=== PATIENT | male | born 1955 | race Hispanic/Latino ===

== ENCOUNTER 2018-05-21 09:17 | Observation (INO) | payer OTHER ==
[2018-05-20 15:06] LABS: ANION GAP 16.2 mmol/L (8-16); BLOOD UREA NITROGEN 14 mg/dL (7-26); BUN/CREATININE RATIO 14 (6-25); CALCIUM 10.3 mg/dL (8.4-10.2); CARBON DIOXIDE 26 mmol/L (22-29); CHLORIDE 107 mmol/L (98-107); CREATININE, SERUM 1.03 mg/dL (0.72-1.25); EST GLOMERULAR FILTRATION RATE > 60 ML/MIN (60-); GLUCOSE 76 mg/dL (74-118); SODIUM 144 mmol/L (136-145)
[2018-05-20 15:08] LABS: POTASSIUM 5.2 mmol/L (3.5-5.1)
[~2018-05-21] VITALS: Ht 177.8 cm; Wt 113.9 kg
[~2018-05-21 09:17] MED LIST: ATORVASTATIN CA20 MG PO; CLONAZEPAM0.5 MG PO; LEVOTHYROXINE50 MCG PO; LOSARTAN POTASS25 MG; METFORMIN HCL850 MG PO; METOCLOPRAMIDE10 MG PO; METOPROLOL SUCC50 MG PO; NOVOLOG MI100 UNIT/1 SC; PIOGLITAZONE HC45 MG PO; TAMSULOSIN HCL0.4 MG; ULTRAM50 MG PO; VITAMIN D1000 UNI1 PO
[2018-05-21] MEDS ORDERED: DEXAMETHASONE SOD PHOS 10 MG/1 ML VIAL ONE (09:40)
[2018-05-21] MEDS ORDERED: GABAPENTIN 300 MG CAP ONE (09:40)
[2018-05-21] MEDS ORDERED: CELECOXIB 200 MG CAP ONE (09:40)
[2018-05-21] MEDS ORDERED: CEFAZOLIN SOD 2 GM/D5W 50ML 50 ML IV ONE (09:41)
[2018-05-21] MEDS ORDERED: MUPIROCIN 2% OINT 22 GM TUBE ONE (09:59)
[2018-05-21] MEDS ORDERED: TRANEXAMIC ACID 1,000 MG/10 ML ML ONE (10:00)
[2018-05-21] MEDS ORDERED: BACITRACIN 50,000 UNIT VIAL ONE (10:00)
[2018-05-21] MEDS ORDERED: ROPIVACAINE 246.25 MG, EPINEPHRINE HCL 1:1000 0.5 MG, CLONIDINE HCL 0.08 MG, KETOROLAC ... INJ ONE ×5 (11:45)
[2018-05-21] MEDS ORDERED: SODIUM CHLORIDE 0.9% 1000ML 1,000 ML IV SCH (12:17)
[2018-05-21] MEDS ORDERED: DOCUSATE SODIUM 100 MG CAP PO PRN (12:30)
[2018-05-21] MEDS ORDERED: ACETAMINOPHEN 650 MG SUPP PR PRN (12:30)
[2018-05-21] MEDS ORDERED: DIPHENHYDRAMINE HCL INJ 50 MG/ML VIAL IM/IV PRN (12:30)
[2018-05-21] MEDS ORDERED: KETOROLAC TROMETHAMINE 30 MG/ML VIAL IV PRN (12:30)
[2018-05-21] MEDS ORDERED: HYDROCODONE/APAP 7.5MG-325MG 1 EA TAB PO PRN ×2 (12:30→19:00)
[2018-05-21] MEDS ORDERED: ZOLPIDEM TARTRATE 5 MG TAB PO PRN (12:30)
[2018-05-21] MEDS ORDERED: HYDROCODONE/APAP 5MG-325MG TAB PO PRN (12:30)
[2018-05-21] MEDS ORDERED: PROMETHAZINE HCL (IM) 25 MG/ML VIAL INJ PRN (12:30)
--- NOTE | 2018-05-21 12:52 | Operative Report ---
DATE OF PROCEDURE: May 21, 2018 DESK REPRESENTATIVE: Tyrone Perez PA-C The patient was brought to the operating room for induction of anesthesia. Throughout this case, my PA's assistance was necessary for retraction of soft tissue and positioning of the extremity. This allows for efficient and technically successful execution of the operation and is considered medically necessary. PREOPERATIVE DIAGNOSIS: Osteoarthritis, left knee. POSTOPERATIVE DIAGNOSIS: Osteoarthritis, left knee. PROCEDURE: Left total knee arthroplasty. INDICATIONS: The patient is a 62-year-old gentleman with end-stage arthritis of his left knee. He has failed conservative management and would like to proceed with a left total knee replacement. The risks and benefits have been discussed. He states he understands and wishes to proceed. DESCRIPTION OF PROCEDURE: The patient was brought to the operating room and placed under general anesthetic. He received prophylactic antibiotics, a regional block and tranexamic acid in the holding area. His left lower extremity was prepped and draped in a sterile manner. A preoperative time out was performed. The extremity was exsanguinated, and a proximal tourniquet was inflated to 300 mmHg. An anterior incision with a medial parapatellar arthrotomy was performed. Soft-tissue releases were performed to bring the knee up into flexion with the patella everted. A more aggressive medial release than usual was necessary due to the varus deformity. The cruciate ligaments, meniscal remnants and osteophytes were removed. A Sprague [employer] Nephew Mariah II posterior stabilized knee system was used throughout the case. An extramedullary cutting guide was used to resect the proximal tibia. The tibial baseplate was noted to be a size number 7. A +2-mm cut was made due to the limited range of motion. The central fin punch was impacted, and attention was directed towards the distal femur. An intramedullary cutting guide was used to resect the distal femur in 6 degrees of valgus and rotation referencing off of a combination of landmarks including [place] line, the epicondylar axis and the posterior condyles. The femoral component was also noted to be a size number 7. Anterior and posterior cuts were made. The posterior capsule and posterior joint were inspected. Loose bodies were removed. Posterior osteophytes were removed. A trial reduction was performed. A 9-mm ultracongruent tibial insert was felt to provide optimal soft-tissue balancing in full extension and 90 degrees of flexion. The patella was resurfaced with a 35 mm x 9 mm patellar button. The thickness was checked before and after resurfacing and was right at 26 mm each time. Patellar tracking was concentric. The trial implants were then removed. A 100-mL premixed pericapsular DEBRA injection was placed into the surrounding soft tissue. The knee was thoroughly irrigated with a shower-tip pulsatile lavage. The components were cemented into place using a single mix of Palacos cement preloaded with antibiotics. Care was taken to remove extravasated cement. The wound was further irrigated while the cement cured. The arthrotomy was closed with interrupted #1 Ethibond. The knee was put through flexion and extension to ensure a secure closure. The skin was closed with subcuticular Vicryl and daisy. A sterile bandage was applied. The patient was extubated and transported to the recovery room in stable condition. Blood loss was minimal. All needle and sponge counts were correct. Job#: [id number]
[2018-05-21] MEDS ORDERED: HYDROMORPHONE 1MG/1ML INJ ONE (13:03)
[2018-05-21] MEDS: CEFAZOLIN SOD 1 GM/D5W 50ML 50 ML IV SCH ×2 (14:01→21:08)
[2018-05-21] MEDS: ONDANSETRON HCL INJ 2 MG/ML VIAL IV PRN ×2 (14:01→21:08)
--- NOTE | 2018-05-21 14:54 | Diagnostic Imaging Report ---
PROCEDURE: X-RAY LEFT KNEE, ONE OR TWO VIEWS COMPARISON: None. INDICATIONS:STATUS POST LEFT KNEE SURGERY FINDINGS: See conclusion. CONCLUSION: Status post total left knee replacement with surrounding soft tissue swelling, air and daisy consistent with recent surgery. No acute fractures.satisfactory alignment. Bud Christine M.D. Dictated by: Bud Christine M.D. on 05/21/2018 at 14:11 Electronically approved by: Bud Christine M.D. on 05/21/2018 at 14:11
[2018-05-21 15:30] VITALS: BP 138/76
[2018-05-21 15:45] VITALS: BP 134/75
[2018-05-21] MEDS ORDERED: CELECOXIB 100 MG CAP PO SCH (17:00)
[2018-05-21] MEDS ORDERED: NOVOLOG MI100 UNIT/1 SC (17:12)
[2018-05-21] MEDS: ASPIRIN 325 MG TAB PO SCH (17:53)
[2018-05-21] MEDS: CELECOXIB 200 MG CAP PO SCH (17:53)
[2018-05-21] MEDS ORDERED: ACETAMINOPHEN 1000 MG/100 ML IV ONE (17:58)
[2018-05-21] MEDS ORDERED: ONDANSETRON HCL INJ 2 MG/ML VIAL ONE (17:58)
[2018-05-21] MEDS ORDERED: LIDOCAINE HCL 2% LOCAL INJ 5 ML SDV VIAL INJ ONE (17:58)
[2018-05-21] MEDS ORDERED: SEVOFLURANE INHAL SOLN 250 ML PEN BTL ONE (17:58)
[2018-05-21] MEDS ORDERED: PROPOFOL IV EMULSION 10 MG/ML 20 ML VIAL ONE (17:58)
[2018-05-21] MEDS ORDERED: ACETAMINOPHEN 1000 MG/100 ML IV SCH (18:00)
[2018-05-21] MEDS ORDERED: LIDOCAINE 2%/ EPINEPHRINE 20ML MDV ONE (18:01)
[2018-05-21] MEDS ORDERED: ROPIVACAINE 0.5% 5 MG/ML 30 ML SDV ONE (18:01)
[2018-05-21] MEDS ORDERED: FENTANYL CITRATE/PF 100MCG/2 ML INJ ONE (18:04)
[2018-05-21] MEDS ORDERED: MORPHINE SULFATE INJ 10 MG/ML ONE (18:04)
[2018-05-21] MEDS ORDERED: MIDAZOLAM HCL 2 MG/2 ML VIAL ONE (18:04)
[2018-05-21] MEDS ORDERED: ACETAMINOPHEN 325 MG TAB PO PRN (19:00)
[2018-05-21] MEDS ORDERED: CLONAZEPAM 0.5 MG TAB PO PRN (19:00)
[2018-05-21] MEDS ORDERED: DEXTROSE 50% SYRINGE 50 ML IV PRN (19:00)
[2018-05-21 20:00] VITALS: BP 136/77
[2018-05-21] MEDS ORDERED: ATORVASTATIN 40 MG TAB PO SCH (21:00)
[2018-05-21] MEDS ORDERED: ATORVASTATIN 20 MG TAB PO SCH (21:00)
[2018-05-21] MEDS ORDERED: NON-FORMULARY MEDICATION (Insuln Asp Prt/Insulin Aspart (Novolog Mix 70-30 Flexpen Syrn) 3 SC SCH (21:00)
[2018-05-21] MEDS ORDERED: INSULIN ASPART 70/30 100 UNITS/ML VIAL SC SCH (21:00)
[2018-05-21] MEDS: TAMSULOSIN HCL 0.4 MG CAP PO SCH (21:07)
[2018-05-21] MEDS: KETOROLAC TROMETHAMINE 30 MG/ML VIAL IV PRN (21:35)
[2018-05-22] VITALS: BP 103/55
[2018-05-22] MEDS: INSULIN LISPRO 100 UNIT/1 ML 3ML VIAL SQ SCH ×3 (03:18→12:16)
[2018-05-22 04:00] VITALS: BP 121/65
[2018-05-22 05:51] LABS: BASOPHILS % 0.1 % (0.0-1.0); HEMATOCRIT 41.7 % (38.2-49.6); HEMOGLOBIN 13.9 g/dL (14.0-18.0); LYMPHOCYTES # (AUTO) 1.2 (1.0-3.2); LYMPHOCYTES % 10.4 % (18.0-39.1); MEAN CORPUSCULAR HEMOGLOBIN 32.3 pg (28-32); MEAN CORPUSCULAR HGB CONC 33.3 g/dL (31-35); MONOCYTES # (AUTO) 0.8 (0.2-0.8); MONOCYTES % 7.1 % (4.4-11.3); NEUTROPHILS # (AUTO) 9.5 (2.1-6.9); NEUTROPHILS % 81.9 % (38.7-80.0); PLATELET COUNT 259 x10e3/uL (140-360); RED CELL DISTRIBUTION WIDTH 13.6 % (11.7-14.4)
[2018-05-22] MEDS ORDERED: LEVOTHYROXINE SODIUM 25 MCG TABLET PO SCH (06:00)
[2018-05-22 06:13] LABS: ANION GAP 12.2 mmol/L (8-16); BLOOD UREA NITROGEN 21 mg/dL (7-26); BUN/CREATININE RATIO 24 (6-25); CALCIUM 8.9 mg/dL (8.4-10.2); CARBON DIOXIDE 23 mmol/L (22-29); CHLORIDE 106 mmol/L (98-107); CREATININE, SERUM 0.86 mg/dL (0.72-1.25); EST GLOMERULAR FILTRATION RATE > 60 ML/MIN (60-); GLUCOSE 171 mg/dL (74-118); POTASSIUM 4.2 mmol/L (3.5-5.1); SODIUM 137 mmol/L (136-145)
[2018-05-22] MEDS: CEFAZOLIN SOD 1 GM/D5W 50ML 50 ML IV SCH (06:18)
[2018-05-22] MEDS: KETOROLAC TROMETHAMINE 30 MG/ML VIAL IV PRN ×2 (06:25→12:04)
[2018-05-22] MEDS ORDERED: INSULIN ASPART 70/30 100 UNITS/ML VIAL SC SCH (07:30)
[2018-05-22] MEDS ORDERED: NON-FORMULARY MEDICATION (Insuln Asp Prt/Insulin Aspart (Novolog Mix 70-30 Flexpen Syrn) 4 SC SCH (07:30)
[2018-05-22] MEDS: ASPIRIN 325 MG TAB PO SCH (08:22)
[2018-05-22] MEDS: CELECOXIB 200 MG CAP PO SCH (08:22)
[2018-05-22] MEDS: TAMSULOSIN HCL 0.4 MG CAP PO SCH (08:23)
[2018-05-22 08:30] VITALS: BP 117/61
[2018-05-22] MEDS ORDERED: ASPIRIN325 MG PO (08:57)
[2018-05-22] MEDS ORDERED: METOPROLOL SUCCINATE 50 MG TAB XL PO SCH (09:00)
[2018-05-22] MEDS ORDERED: LEVOTHYROXINE SODIUM 50 MCG TAB PO SCH (09:00)
[2018-05-22 10:30] VITALS: BP 117/61
[2018-05-22 12:29] VITALS: BP 101/57
[2018-05-22] MEDS ORDERED: ACETAMINOPHEN 1000 MG/100 ML IV PRN (12:30)
== END 2018-05-22 13:50 | disposition home health service (06) ==
LOC: OR 09:17 → PACU V 12:19 → MED/SURG 13:13
PROVIDERS: ADMIT Specialist; ATTEND Specialist
DX: M17.12 Unilateral primary osteoarthritis, left knee (principal); I10 Essential (primary) hypertension; E11.9 Type 2 diabetes mellitus without complications; E78.5 Hyperlipidemia, unspecified
CPT/HCPCS: 36415; 80048; 82948; 85025; 86850; 86900; 86920; 93005; C1713; G0378; J0171; J1100; J1170; J1815; J1885; J2001; J2250; J2270; J2405; J2795; J7030

== ENCOUNTER → 2018-07-05 | Outpatient (RCR) | payer OTHER ==
--- NOTE | 2018-06-27 15:41 | Discharge Summary ---
SANDY WASSERMAN, LENGTH 0:3 LUIS DODD MD Job#: [id number] GWEN
[~2018-07-05] MED LIST changes: +ASPIRIN325 MG PO
== END ==
LOC: PT 07-03 13:57
PROVIDERS: ATTEND Specialist
DX: Z96.652 Presence of left artificial knee joint (principal); Z47.89 Encounter for other orthopedic aftercare

== ENCOUNTER 2018-07-24 10:49 | Outpatient (RCR) | payer OTHER | END 2018-08-04 | LOC: PT 10:49 | PROVIDERS: ATTEND Specialist | DX: Z96.652 Presence of left artificial knee joint (principal); Z47.1 Aftercare following joint replacement surgery; Z47.89 Encounter for other orthopedic aftercare; M17.12 Unilateral primary osteoarthritis, left knee; M25.662 Stiffness of left knee, not elsewhere classified; M25.661 Stiffness of right knee, not elsewhere classified; R26.2 Difficulty in walking, not elsewhere classified; M25.562 Pain in left knee ==

== ENCOUNTER 2018-08-30 11:00 | Outpatient (RCR) | payer OTHER ==
[~2018-08-30 11:00] MED LIST changes: -LOSARTAN POTASS25 MG; +LOSARTAN POTASS25 MG PO; -TAMSULOSIN HCL0.4 MG; +TAMSULOSIN HCL0.4 MG PO
== END 2018-09-04 ==
LOC: PT 11:00
PROVIDERS: ATTEND Specialist
DX: Z96.652 Presence of left artificial knee joint (principal); Z47.1 Aftercare following joint replacement surgery; M17.12 Unilateral primary osteoarthritis, left knee; M25.562 Pain in left knee; M25.662 Stiffness of left knee, not elsewhere classified; M62.81 Muscle weakness (generalized); R26.2 Difficulty in walking, not elsewhere classified
CPT/HCPCS: 97139

== ENCOUNTER 2018-09-10 06:39 | Observation (INO) | payer OTHER ==
[2018-09-09 11:33] LABS: BASOPHILS % 0.3 % (0.0-1.0); EOSINOPHILS # (AUTO) 0.1 (0.0-0.4); EOSINOPHILS % 1.4 % (0.0-6.0); HEMATOCRIT 46.4 % (38.2-49.6); HEMOGLOBIN 15.4 g/dL (14.0-18.0); LYMPHOCYTES # (AUTO) 2.5 (1.0-3.2); MEAN CORPUSCULAR HEMOGLOBIN 32.1 pg (28-32); MEAN CORPUSCULAR HGB CONC 33.2 g/dL (31-35); MEAN CORPUSCULAR VOLUME 96.7 fL (81-99); MONOCYTES # (AUTO) 0.6 (0.2-0.8); MONOCYTES % 7.3 % (4.4-11.3); NEUTROPHILS # (AUTO) 4.8 (2.1-6.9); NEUTROPHILS % 59.9 % (38.7-80.0); PLATELET COUNT 275 x10e3/uL (140-360); RED CELL DISTRIBUTION WIDTH 14.6 % (11.7-14.4)
[2018-09-09 11:44] LABS: ANION GAP 12.6 mmol/L (8-16); BLOOD UREA NITROGEN 21 mg/dL (7-26); BUN/CREATININE RATIO 18 (6-25); CALCIUM 10.3 mg/dL (8.4-10.2); CARBON DIOXIDE 29 mmol/L (22-29); CHLORIDE 103 mmol/L (98-107); CREATININE, SERUM 1.16 mg/dL (0.72-1.25); EST GLOMERULAR FILTRATION RATE > 60 ML/MIN (60-); GLUCOSE 169 mg/dL (74-118); POTASSIUM 4.6 mmol/L (3.5-5.1); SODIUM 140 mmol/L (136-145)
[~2018-09-10] VITALS: Ht 177.8 cm; Wt 113.9 kg
--- OUTSIDE RECORDS SUMMARY | 2018-09-10 06:41 | XMS REPORT ---
[facility] Address Unknown Phone Unavailable Care Team Providers Care Pallet Stone Inserter Name Role Phone LUIS DODD Unavailable Unavailable Problems This patient has no known problems. Allergies, Adverse Reactions, Alerts This patient has no known allergies or adverse reactions. Medications This patient has no known medications. Results Test Description Test Time Test Comments Text Results Atomic Results Result Comments KNEE LEFT 1-2 VIEWS 2018-05-21 14:11:00 [place] [id number] Patient Name: SHAHANA HOLGUIN MR #: [id number] : 1955 Age/Sex: 62/M Req #: [id number] [facility] Physician: LUIS DODD MD Ordered by: LUIS DODD MD Report #: [id number] Location: MED/SURG Room/Bed: [facility] Procedure: [id number] DX/KNEE LEFT 1-2 VIEWS Exam Date: 05/21/18 Exam Time: 1230 REPORT STATUS: Signed PROCEDURE: X-RAY LEFT KNEE, ONE OR TWO VIEWS COMPARISON: None. INDICATIONS: STATUS POST LEFT KNEE SURGERY FINDINGS: See conclusion. CONCLUSION: Status post total left knee replacement with surrounding soft tissue swelling, air and daisy consistent with recent surgery. No acute fractures.satisfactory alignment. Tadeo Christine M.D. Dictated by: Tadeo Christine M.D. on 05/21/2018 at 14:11 Electronically approved by: Tadeo Christine M.D. on 05/21/2018 at 14:11 Dictated By: TADEO CHRISTINE MD 1411 Transcribed By: VASQUEZ on 05/21/18 141 COPY TO: LUIS DODD MD
[2018-09-10] MEDS ORDERED: BACITRACIN 50,000 UNIT VIAL ONE (06:52)
[2018-09-10] MEDS ORDERED: TRANEXAMIC ACID 1,000 MG/10 ML ML ONE (06:52)
[2018-09-10] MEDS ORDERED: CELECOXIB 200 MG CAP ONE (07:00)
[2018-09-10] MEDS ORDERED: GABAPENTIN 300 MG CAP ONE (07:00)
[2018-09-10] MEDS ORDERED: CEFAZOLIN SOD 2 GM/D5W 50ML 50 ML IV ONE (07:00)
[2018-09-10] MEDS ORDERED: DEXAMETHASONE SOD PHOS 10 MG/1 ML VIAL ONE (07:00)
[2018-09-10] MEDS ORDERED: ROPIVACAINE 246.25 MG, EPINEPHRINE HCL 1:1000 0.5 MG, CLONIDINE HCL 0.08 MG, KETOROLAC ... INJ ONE ×5 (07:30)
[2018-09-10] MEDS ORDERED: DIPHENHYDRAMINE HCL INJ 50 MG/ML VIAL IM/IV PRN (10:30)
[2018-09-10] MEDS ORDERED: ONDANSETRON HCL INJ 2 MG/ML VIAL IV PRN (10:30)
[2018-09-10] MEDS ORDERED: DOCUSATE SODIUM 100 MG CAP PO PRN (10:30)
[2018-09-10] MEDS ORDERED: ACETAMINOPHEN 650 MG SUPP PR PRN (10:30)
[2018-09-10] MEDS ORDERED: KETOROLAC TROMETHAMINE 30 MG/ML VIAL IV PRN (10:30)
[2018-09-10] MEDS ORDERED: PROMETHAZINE HCL (IM) 25 MG/ML VIAL IM PRN (10:30)
[2018-09-10] MEDS ORDERED: HYDROCODONE/APAP 5MG-325MG TAB PO PRN (10:30)
[2018-09-10] MEDS ORDERED: FENTANYL CITRATE/PF 100MCG/2 ML INJ ONE ×2 (10:52→15:02)
[2018-09-10] MEDS ORDERED: INSULIN REGULAR, HUMAN 100 UNIT/1 ML 3ML VIAL ONE (11:08)
[2018-09-10] MEDS ORDERED: HYDROMORPHONE 2MG/ML 2 MG/ML ML ONE (11:20)
--- NOTE | 2018-09-10 12:27 | Diagnostic Imaging Report ---
Radiographs of the right knee - 2 views HISTORY: Pain COMPARISON: None available. FINDINGS: Bones: No acute displaced fracture. Osseous alignment is within normal limits. Joints: Patient status post knee replacement with associated postsurgical change. The surgical hardware is intact without evidence of failure or loosening. Soft tissues: The soft tissues appear unremarkable. IMPRESSION: Patient status post knee replacement with associated postsurgical change. The surgical hardware is intact without evidence of failure or loosening. Signed by: Dr. Mikael Oliveros M.D. on 09/10/2018 12:24 PM
[2018-09-10] MEDS: SODIUM CHLORIDE 0.9% 1000ML 1,000 ML IV SCH ×2 (12:28→20:21)
[2018-09-10] MEDS: ACETAMINOPHEN 1000 MG/100 ML IV SCH ×3 (12:28→23:39)
[2018-09-10 12:43] VITALS: BP 118/58
[2018-09-10 13:06] VITALS: BP 118/58
[2018-09-10] MEDS ORDERED: CEFAZOLIN SOD 1 GM/D5W 50ML 50 ML IV SCH (14:00)
--- NOTE | 2018-09-10 14:54 | Operative Report ---
DATE OF PROCEDURE: September 10, 2018 HOUSE SHORER: Tyrone Perez PA-C The patient was brought to the operating room for induction of anesthesia. Throughout this case, my PA's assistance was necessary for retraction of soft tissue and positioning of the extremity. This allows for efficient and technically successful execution of the operation and is considered medically necessary. PREOPERATIVE DIAGNOSIS: Osteoarthritis right knee. POSTOPERATIVE DIAGNOSIS: Osteoarthritis right knee. PROCEDURE: Right total knee arthroplasty. INDICATIONS: The patient is a 63-year-old gentleman who has severe end-stage arthritis of his right knee. He has failed conservative management and would like to proceed with a right total knee replacement. The risks and benefits of the procedure have been discussed. He is familiar with the procedure. He had his left knee done in the past. He states he understands and wishes to proceed. DESCRIPTION OF PROCEDURE: The patient was brought to the operating room and placed under general anesthetic. He received prophylactic antibiotics, tranexamic acid and a regional block in the holding area. His right lower extremity was prepped and draped in a sterile manner. A preoperative time out was performed. The knee was exsanguinated, and a proximal tourniquet was inflated to 300 mmHg. An anterior approach with a medial parapatellar arthrotomy was performed. Clear synovial fluid was removed from the joint. Soft-tissue releases were performed to bring the knee up into flexion with the patella everted. A fairly aggressive medial release was necessary due to his varus deformity. Meniscal remnants and marginal osteophytes were removed. An extramedullary cutting guide was used to resect the proximal tibia. A +2 mm cut was needed due to the medial wear and his limited motion. The tibial baseplate was noted to be a size number 7. The central fin punch was impacted, and attention was directed towards the distal femur. Throughout the case, a Sprague [employer] Nephew Mariah II posterior stabilized knee system was used. The cruciate ligaments had been sacrificed. An intramedullary cutting guide was used to resect the distal femur in 6 degrees of valgus and rotation referencing off of a combination of landmarks including Ken's line, the epicondylar axis and the posterior condyles. The femoral component was also a size number 7. The anterior and posterior cuts were made. Trial reductions were performed. A 9 mm ultracongruent tibial insert provided appropriate soft-tissue balancing in full extension and 90 degrees of flexion. The patella was resurfaced with a 35 mm x 7.5 mm patellar button. The thickness was checked before and after resurfacing and was right at 25 mm. Patellar tracking was noted to be concentric. The trial implants were then all removed. A 100 mL premixed pericapsular DEBRA injection was placed into the surrounding soft tissue. The knee was thoroughly irrigated with a shower-tip pulsatile lavage. The components were cemented into place using a single mix of Palacos cement pre-loaded with antibiotics. Care was taken to remove all extravasated cement. The wound was further irrigated while the cement cured. The arthrotomy was closed with interrupted number 1 Ethibond. The knee was put through flexion and extension to ensure a secure closure. The skin was closed with subcuticular Vicryl and daisy. A sterile bandage was applied. He was extubated and transported to the recovery room in stable condition. Blood loss was minimal. All needle and sponge counts were correct. Job#: [id number] EV
[2018-09-10] MEDS ORDERED: MIDAZOLAM HCL 2 MG/2 ML VIAL ONE (15:02)
[2018-09-10] MEDS ORDERED: BUPIVACAINE HCL 0.5% INJ 30 ML VIAL INJ ONE (15:13)
[2018-09-10] MEDS ORDERED: EPINEPHRINE HCL INJ 1 MG/ML AMP ONE (15:13)
[2018-09-10] MEDS ORDERED: ONDANSETRON HCL INJ 2 MG/ML VIAL ONE (15:18)
[2018-09-10] MEDS ORDERED: SEVOFLURANE INHAL SOLN 250 ML PEN BTL ONE (15:18)
[2018-09-10] MEDS ORDERED: EPHEDRINE SULFATE INJ 50 MG/10 ML SYR ONE (15:18)
[2018-09-10] MEDS ORDERED: ACETAMINOPHEN 1000 MG/100 ML IV ONE (15:18)
[2018-09-10] MEDS ORDERED: PROPOFOL IV EMULSION 10 MG/ML 20 ML VIAL ONE (15:18)
[2018-09-10] MEDS ORDERED: LIDOCAINE HCL 2% LOCAL INJ 5 ML SDV VIAL INJ ONE (15:18)
[2018-09-10] MEDS: INSULIN REGULAR, HUMAN 100 UNIT/1 ML 3ML VIAL SQ SCH ×3 (16:00→21:00)
[2018-09-10 16:29] VITALS: BP 108/59
[2018-09-10] MEDS: CELECOXIB 200 MG CAP PO SCH (16:35)
[2018-09-10] MEDS: CEFAZOLIN SOD 1 GM VIAL IV SCH (16:35)
[2018-09-10] MEDS: ASPIRIN 325 MG TAB PO SCH (16:35)
[2018-09-10] MEDS ORDERED: DEXTROSE 50% SYRINGE 50 ML IV PRN (16:45)
[2018-09-10] MEDS ORDERED: CELECOXIB 100 MG CAP PO SCH (17:00)
[2018-09-10 20:00] VITALS: BP 120/64
[2018-09-10] MEDS ORDERED: ZOLPIDEM TARTRATE 5 MG TAB PO PRN (21:00)
[2018-09-10] MEDS: HYDROCODONE/APAP 7.5MG-325MG 1 EA TAB PO PRN (21:23)
[2018-09-10] MEDS ORDERED: SODIUM CHLORIDE 0.9% 250ML 250 ML ONE (23:32)
[2018-09-11] VITALS: BP 121/58
[2018-09-11] MEDS: CEFAZOLIN SOD 1 GM VIAL IV SCH ×2 (00:18→09:20)
[2018-09-11 05:46] LABS: HEMATOCRIT 38.7 % (38.2-49.6)
[2018-09-11] MEDS: ACETAMINOPHEN 1000 MG/100 ML IV SCH (05:54)
[2018-09-11] MEDS: HYDROCODONE/APAP 7.5MG-325MG 1 EA TAB PO PRN ×2 (05:54→13:25)
[2018-09-11] MEDS: SODIUM CHLORIDE 0.9% 1000ML 1,000 ML IV SCH (06:21)
[2018-09-11 06:30] VITALS: BP 108/62
[2018-09-11 08:00] VITALS: BP 114/64
[2018-09-11] MEDS: INSULIN REGULAR, HUMAN 100 UNIT/1 ML 3ML VIAL SQ SCH ×2 (08:00→12:30)
[2018-09-11] MEDS ORDERED: ASPIRIN325 MG PO (09:06)
[2018-09-11 09:20] VITALS: BP 114/64
[2018-09-11] MEDS: ASPIRIN 325 MG TAB PO SCH (09:20)
[2018-09-11] MEDS: CELECOXIB 200 MG CAP PO SCH (09:20)
[2018-09-11] MEDS ORDERED: ACETAMINOPHEN 1000 MG/100 ML IV PRN (10:30)
[2018-09-11] MEDS ORDERED: HYDROCODON-ACE1 EA12 PO (11:29)
[2018-09-11 13:40] VITALS: BP 126/56
[2018-09-11] MEDS ORDERED: INSULIN DETEMIR 100 UNIT/ML PEN SQ SCH (21:00)
--- NOTE | 2018-10-30 16:42 | Discharge Summary ---
CHIEF COMPLAINT: Right knee pain. HISTORY OF PRESENT ILLNESS: This patient is a 63-year-old male who complains of right knee pain for many years. He has already been through a left total knee replacement with our service earlier this year. He would now like to proceed with a right total knee replacement. The risks and benefits of the procedure were reviewed. The patient states he understands and wishes to proceed. HOSPITAL COURSE: Patient underwent a right total knee replacement without complications. She was then transferred to the recovery room and the floor in stable condition. He was followed by Dr. Long for postop medical management. He remained stable through his hospital stay. Progressed nicely with physical therapy. He was discharged home on postop day 1. PRINCIPAL DIAGNOSIS: Osteoarthritis of the right knee. PRINCIPAL PROCEDURE: Right total knee replacement. DISCHARGE INSTRUCTIONS: Patient was discharged home with home physical therapy arranged. He was to be weightbearing as tolerated with a rolling walker. He was to resume his home medications as directed. He is to follow up in our office in 8 to 10 days. Dictated by Tyrone Perez PA-C Job#: [id number]
== END 2018-09-11 16:03 | disposition home or self-care (01) ==
LOC: OR 06:39 → PACU V 10:23 → MED/SURG 11:59
PROVIDERS: ADMIT Specialist; ATTEND Specialist
DX: M17.11 Unilateral primary osteoarthritis, right knee (principal); Z96.652 Presence of left artificial knee joint; E11.9 Type 2 diabetes mellitus without complications; I10 Essential (primary) hypertension; Z83.3 Family history of diabetes mellitus; Z80.9 Family history of malignant neoplasm, unspecified; E78.00 Pure hypercholesterolemia, unspecified; E03.9 Hypothyroidism, unspecified; Z79.84 Long term (current) use of oral hypoglycemic drugs
CPT/HCPCS: 36415; 80048; 82948; 85014; 85018; 85025; 86850; 86900; 86920; 93005; 97139; C1713; G0378; J0171; J0690; J1100; J1885; J2001; J2250; J2405; J2795; J7030; J7050

== ENCOUNTER 2018-12-03 13:00 | Outpatient (RCR) | payer OTHER ==
[~2018-12-03 13:00] MED LIST changes: +HYDROCODON-ACE1 EA12 PO
== END 2018-12-05 ==
LOC: PT 13:00
PROVIDERS: ATTEND Specialist
DX: Z96.652 Presence of left artificial knee joint (principal); Z47.89 Encounter for other orthopedic aftercare; M25.561 Pain in right knee; M62.81 Muscle weakness (generalized)

== ENCOUNTER 2018-12-31 13:00 | Outpatient (RCR) | payer OTHER | END 2019-01-02 | LOC: PT 13:00 | PROVIDERS: ATTEND Specialist | DX: Z96.652 Presence of left artificial knee joint (principal); Z47.89 Encounter for other orthopedic aftercare | CPT/HCPCS: 97139 ==

== ENCOUNTER 2019-01-24 13:00 | Outpatient (RCR) | payer OTHER | END 2019-02-02 | LOC: PT 13:00 | PROVIDERS: ATTEND Specialist | DX: Z96.652 Presence of left artificial knee joint (principal); Z47.89 Encounter for other orthopedic aftercare | CPT/HCPCS: 97139 ==

== ENCOUNTER → 2020-01-16 | Outpatient (CLI) | payer MEDICARE | LOC: CARD 11:03 | PROVIDERS: ATTEND Podiatrist Foot & Ankle Surgery | DX: I73.9 Peripheral vascular disease, unspecified (principal) | CPT/HCPCS: 93925 ==

== ENCOUNTER 2020-12-07 15:16 | Emergency (ER) | payer MEDICARE, OTHER ==
[~2020-12-07] VITALS: Ht 177.8 cm; Wt 113.9 kg
[2020-12-07 16:12] LABS: BASOPHILS % 0.4 % (0.0-1.0); EOSINOPHILS % 0.5 % (0.0-6.0); HEMATOCRIT 51.3 % (38.2-49.6); HEMOGLOBIN 17.2 g/dL (14.0-18.0); LYMPHOCYTES # (AUTO) 0.8 (1.0-3.2); LYMPHOCYTES % 9.6 % (18.0-39.1); MEAN CORPUSCULAR HEMOGLOBIN 31.9 pg (28-32); MEAN CORPUSCULAR HGB CONC 33.5 g/dL (31-35); MEAN CORPUSCULAR VOLUME 95.2 fL (81-99); MONOCYTES # (AUTO) 0.4 (0.2-0.8); MONOCYTES % 4.6 % (4.4-11.3); NEUTROPHILS # (AUTO) 6.6 (2.1-6.9); NEUTROPHILS % 83.9 % (38.7-80.0); PLATELET COUNT 180 x10e3/uL (140-360); RED BLOOD COUNT 5.39 x10e6/uL (4.3-5.7); RED CELL DISTRIBUTION WIDTH 15.2 % (11.7-14.4)
[2020-12-07 16:30] LABS: ALANINE AMINOTRANSFERASE 57 IU/L (0-55); ALBUMIN 3.3 g/dL (3.5-5.0); ALBUMIN/GLOBULIN RATIO 0.9 (0.8-2.0); ALKALINE PHOSPHATASE 71 IU/L (40-150); BLOOD UREA NITROGEN 11 mg/dL (7-26); BUN/CREATININE RATIO 10 (6-25); CALCIUM 8.8 mg/dL (8.4-10.2); CARBON DIOXIDE 23 mmol/L (22-29); CHLORIDE 99 mmol/L (98-107); CREATININE, SERUM 1.09 mg/dL (0.72-1.25); EST GLOMERULAR FILTRATION RATE > 60 ML/MIN (60-); SODIUM 135 mmol/L (136-145)
[2020-12-07 16:32] LABS: GLUCOSE 429 mg/dL (74-118)
[2020-12-07 17:39] VITALS: BP 120/77
== END 2020-12-07 17:44 | disposition home or self-care (01) ==
LOC: ER 15:45
DX: U07.1 COVID-19 (principal); R06.00 Dyspnea, unspecified; E11.65 Type 2 diabetes mellitus with hyperglycemia; I10 Essential (primary) hypertension; E78.5 Hyperlipidemia, unspecified; E03.9 Hypothyroidism, unspecified; F41.9 Anxiety disorder, unspecified
CPT/HCPCS: 36415; 71045; 80053; 85025; 99283